=== PATIENT | female | born 1945 | race Caucasian/White ===

== ENCOUNTER 2016-08-31 12:21 | Emergency (ER) | payer MEDICARE, OTHER ==
[2016-08-31] MEDS ORDERED: 0.9 % SODIUM CHLORIDE 1,000 ML IV ONE ×2 (12:59→16:24)
[2016-08-31 13:22] LABS: BASOPHILS % 0.3 (0.0-1.5); EOSINOPHILS % 0.8 % (0.0-6.8); LYMPHOCYTES # 0.5 # k/uL (0.6-4.0); MEAN CORPUSCULAR HEMOGLOBIN 31.1 pg (28.0-34.0); MONOCYTES # 0.2 # k/uL (0.0-0.9)
[2016-08-31 13:41] LABS: eGFR (African) > 60; eGFR (Non-African) > 60
[2016-08-31] MEDS ORDERED: SODIUM BICARBONATE 2.4 MEQ VIAL INJ ONE (13:51)
[2016-08-31] MEDS ORDERED: LIDOCAINE 1%/EPINEPHRINE 20ML VIAL IJ ONE (13:51)
--- NOTE | 2016-08-31 14:22 | ED Physician Documentation ---
Syncope/Near Syncope - HISTORIAN Historian: patient - HPI Stated Complaint: Syncopal episode in shower Chief Complaint: Syncope Witnessed: No Position at Time of Episode: standing Symptoms Prior to Episode: none Character of Events(s): lost consciousness Symptoms after Event: confused after event Location of Injury: head Associated Symptoms: weakness Further Comments: yes (71 year old female patient presents to ER after syncopal episode. Patient states she was in the shower and awoke on the floor with laceration to forehead. Denies any CP, SOB, dizziness or palpitation prior to syncopal episode.) - ROS CONST: recent illness (cough x 3 day) - PAST HX Cardiac Disease: other (HLD) PE Risk Factors: none Other History: Other (depression) Surgeries/Procedures: , other (tonsilectomy) Allergies/Adverse Reactions: Allergies Allergy/AdvReac Type Severity Reaction Status Date / Time cephalexin monohydrate Allergy Intermediate Itchy Skin Verified 07/11/15 22:05 [From Keflex] Sulfa (Sulfonamide Allergy Intermediate Hives Verified 07/11/15 22:05 Antibiotics) [Sulfa(Sulfonamide Antibiotics)] Home Medications: Ambulatory Orders Medication Instructions Recorded Fluoxetine HCl [Prozac] 20 mg PO QDAY 07/27/12 Rosuvastatin Calcium [Crestor] 20 mg D 03/27/15 Omeprazole [Omeprazole] 40 mg PO DAILY 07/11/15 - SOCIAL HX Smoking History: non-smoker Alcohol Use: none - FAMILY HX Family History: denies: none - VITAL SIGNS Vital Signs: Vital Signs Temp Pulse Resp BP Pulse Ox 97.3 F L 76 18 123/64 96 08/31/16 12:21 08/31/16 15:30 08/31/16 12:21 08/31/16 13:00 08/31/16 15:30 - REVIEWED ASSESSMENTS Nursing Assessment Reviewed: Yes Vitals Reviewed: Yes Procedures Wound Location: head (left forehead) Wound Length: 2.5 cm Wound's Depth, Shape: linear Wound Explored: clean Irrigated w/ Saline (ccs): 250 Betadine Prep?: No (chlorhexidine) Anesthesia: Lidocaine w/ Epi Volume of Anesthetic: 5 Wound Repaired With: sutures Suture Size/Type: 6:0 Number of Sutures: 6 Sterile Dressing Applied?: Yes Progress: Patient tolerated well, edges well approximated. Progress - Progress Progress: 1400 Laceration repaired, reviewed plan of care with patient. Recommend admission for 23 hour observation due to LOC and syncopal episode. Patient requested transfer to [place]. 1425 Call to [place], case discussed with Mabel. Awaiting acceptance. - EKG/XRAY/CT EKG: rhythm (SR, rate 64, no acute changes) ED Results Lab/Radiology - Lab Results Lab Results: Lab Results 08/31/16 08/31/16 08/31/16 13:10 13:10 13:10 WBC 2.70 K/ul L K/ul (4.00-12.00) RBC 3.94 M/ul M/ul (3.90-5.20) Hgb 12.3 g/dL g/dL (12.0-16.0) Hct 36.5 % % (34.5-46.5) MCV 92.6 fl fl (80.0-100.0) MCH 31.1 pg pg (28.0-34.0) MCHC 33.6 g/dL g/dL (30.0-36.0) RDW 13.3 % % (11.3-14.3) Plt Count 89 K/mm3 L K/mm3 (130-400) Neut % (Auto) 73.4 % % (39.0-79.0) Lymph % (Auto) 16.9 % % (16.0-50.0) Armstrong % (Auto) 6.0 % % (0.0-11.0) Eos % (Auto) 0.8 % % (0.0-6.8) Baso % (Auto) 0.3 (0.0-1.5) Neut # 2.0 # k/uL # k/uL (1.4-7.7) Lymph # 0.5 # k/uL L # k/uL (0.6-4.0) Armstrong # 0.2 # k/uL # k/uL (0.0-0.9) Eos # 0.0 # k/uL # k/uL (0.0-0.6) Baso # 0.0 # k/uL # k/uL (0.0-0.5) Reactive Lymphs % 2.7 % % (0.0-5.0) Reactive Lymphs # 0.1 # k/uL # k/uL (0.0-0.8) Sodium 141 mmol/L mmol/L (136-145) Potassium 3.5 mmol/L mmol/L (3.5-5.0) Chloride 98 mmol/L mmol/L (98-110) Carbon Dioxide 36 mmol/L H mmol/L (20-32) BUN 17 mg/dL mg/dL (10-26) Creatinine 1.1 mg/dL mg/dL (0.4-1.5) Estimated Creat Clear 64 Est GFR ( Amer) > 60 (60 - ) Est GFR (Non-Af Amer) > 60 (60 - ) Glucose 109 mg/dL H mg/dL (70-99) Calcium 9.9 mg/dL mg/dL (8.5-10.5) Total Bilirubin 0.4 mg/dL mg/dL (0.2-1.2) AST 29 U/L U/L (0-41) ALT 17 U/L U/L (0-45) Alkaline Phosphatase 94 U/L U/L (46-116) Troponin I < 0.03 ng/mL L ng/mL (0.03-0.06) Total Protein 7.0 g/dL g/dL (6.0-8.5) Albumin 4.5 g/dL g/dL (3.0-5.5) - Radiology Radiology Impressions: Chest, 2 view History: SYNCOPE. PT FELL IN SHOWER THIS MORNING. DOES NOT REMEMBER INCIDENT Findings: The heart size is normal. There is atherosclerosis of the aorta. The lungs are clear. There is no pleural effusion or pneumothorax identified. The osseous structures are normal. Impression: 1. No acute pulmonary disease. CT Brain without Contrast History:SYNCOPE. PT FELL IN SHOWER THIS MORNING. DOES NOT REMEMBER INCIDENT Technique: Transaxial CT was performed without contrast from the skull base to the vertex. Findings: Scattered bilateral white matter hypodensity is present, consistent with gliosis. Mild cerebral atrophy is present. The lateral ventricles are mildly dilated. No hemorrhage or edema-producing mass. The fourth ventricle is midline. The paranasal sinuses are clear. No skull fracture. The mastoid air cells are well developed and well aerated. Impression: 1. Mild cerebral atrophy and white matter gliosis. 2. No acute cerebral pathology. - Orders Orders: ED Orders Category Date Time Status Apply/change dressing NOW Care 08/31/16 15:41 Active Continuous EKG monitoring Q30M Care 08/31/16 12:58 Active Continuous Pulse Oximetry Q30M Care 08/31/16 12:58 Active Orthostatics 1T Care 08/31/16 14:[address] Saline Lock/IV NOW Care 08/31/16 12:58 Active CHEST 2 VIEW [CHEST P.A.&LAT 2 VIEWS] [RAD] Stat Exams 08/31/[address] BRAIN W/O CONTRAST Stat Exams 08/31/16 Completed CBC/PLATELET/DIFF Stat Lab 08/31/16 13:10 Completed CMP Stat Lab 08/31/16 13:10 Completed TROPONIN I (cTnI) Stat Lab 08/31/16 13:10 Completed UA W/MICRO IF INDICATED Stat Lab 08/31/16 12:58 Ordered 0.9 % Sodium Chloride [Normal Saline] 1,000 ml Med 08/31/16 12:59 Discontinued IV NOW Lidocaine 1%/Epinephrine [Xylocaine 1%-EPI 1:100,000] Med 08/31/16 13:51 Discontinued 7 ml IJ NOW ONE Sodium Bicarbonate [Neut] Med 08/31/16 13:51 Discontinued 2.4 meq INJ NOW ONE EKG WITH COMPARISON Stat Ther 08/31/16 12:58 Completed Syncope Physical Exam - Physical Exam General Appearance: mild distress (tearful) EENT: nml eye inspection, PERRL, nml ENT inspection, no apparent trauma, pharynx nml, no CSF leak, other (2.5 cm laceration to right side of forehead) Respiratory: no resp distress, chest non-tender, breath sounds normal CVS: reg rate & rhythm, heart sounds normal, equal pulses, no murmur, no gallop , PMI nml, no JVD, no friction rub, 24 Abdomen: non-tender, no organomegaly, nml bowel sounds, no distention Skin: normal color, warm/dry, NR, INT, PAL, DR Extremities: non-tender, normal range of motion, no evidence of injury, no edema , J, 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 - Neuro/Psych Higher Functions: alert, oriented x3, no evidence of acute CVA, mood/affect nml Cranial Nerves: nml as tested Cerebellar: nml as tested Sensorimotor: nml motor response, nml sensory response, nml reflexes, nml gait Discharge Clincal Impression: Syncope and collapse, Thrombocytopenia Laceration of forehead Qualifiers: Encounter type: initial encounter Qualified Code(s): S01.81XA - Laceration without foreign body of other part of head, initial encounter Leukopenia Qualifiers: Leukopenia type: unspecified Qualified Code(s): D72.819 - Decreased white blood cell count, unspecified Referrals: La Blanchard, PRN [Primary Care Provider] - 2 Days Home Medications: Ambulatory Orders Fluoxetine HCl [Prozac] 20 mg PO QDAY 07/27/12 Rosuvastatin Calcium [Crestor] 20 mg D 03/27/15 Omeprazole [Omeprazole] 40 mg PO DAILY 07/11/15 Condition: Good Disposition: 02 XFER [id number] HOSP Decision to Admit: [id number] Decision Time: 14:31
--- NOTE | 2016-08-31 15:08 | Diagnostic Imaging Report ---
[facility] [address] [facility].[address] [address] Report Submission Date: Aug 31, 2016 1:45:12 PM SPRAY GUN STRIPER Patient Study Name: ROYER TALBOT Date: Aug 31, 2016 1:33:58 PM SPRAY GUN STRIPER Modality Type: CR Gender: F Description: CHEST : 43 Institution: [facility] Physician LISSET CROSS (FINANCIAL AID ADMINISTRATOR) - ER Chest, 2 view History: SYNCOPE. PT FELL IN SHOWER THIS MORNING. DOES NOT REMEMBER INCIDENT Findings: The heart size is normal. There is atherosclerosis of the aorta. The lungs are clear. There is no pleural effusion or pneumothorax identified. The osseous structures are normal. Impression: 1. No acute pulmonary disease. Electronically signed on Aug 31, 2016 1:45:12 PM SPRAY GUN STRIPER by: Alex WILLIS
--- NOTE | 2016-08-31 15:08 | Diagnostic Imaging Report ---
[facility] [address] [facility] [address] [place], [place]. [address] Report Submission Date: Aug 31, 2016 1:44:43 PM COVERSTITCH MACHINE OPERATOR Patient Study Name: ROYER TALBOT Date: Aug 31, 2016 1:26:51 PM COVERSTITCH MACHINE OPERATOR Modality Type: CT\SR Gender: F Description: CT BRAIN W/O CONTRAST : 43 Institution: [facility] Physician LISSET CROSS (CLINICAL LABORATORY ASSISTANT) - ER CT Brain without Contrast History:SYNCOPE. PT FELL IN SHOWER THIS MORNING. DOES NOT REMEMBER INCIDENT Technique: Transaxial CT was performed without contrast from the skull base to the vertex. Findings: Scattered bilateral white matter hypodensity is present, consistent with gliosis. Mild cerebral atrophy is present. The lateral ventricles are mildly dilated. No hemorrhage or edema-producing mass. The fourth ventricle is midline. The paranasal sinuses are clear. No skull fracture. The mastoid air cells are well developed and well aerated. Impression: 1. Mild cerebral atrophy and white matter gliosis. 2. No acute cerebral pathology. Electronically signed on Aug 31, 2016 1:44:43 PM COVERSTITCH MACHINE OPERATOR by: Alex Lynn [facility] STATE HOSPITALBenigno
[2016-08-31 16:34] VITALS: BP 140/80
[2016-08-31 17:36] LABS: APPEARANCE,URINE CLEAR (CLEAR); COLOR,URINE YELLOW (YELLOW)
[2016-08-31 17:37] LABS: OCCULT BLOOD,URINE TRACE-INTACT (NEGATIVE); UROBILINOGEN URINE 0.2 Eu (0.2-1.0)
== END 2016-08-31 16:25 | disposition short-term general hospital (02) ==
LOC: ED 12:21
DX: R55 Syncope and collapse (principal); D69.6 Thrombocytopenia, unspecified; S01.81XA Laceration without foreign body of other part of head, initial encounter; D72.819 Decreased white blood cell count, unspecified; W19.XXXA Unspecified fall, initial encounter; Y93.9 Activity, unspecified; Y99.9 Unspecified external cause status
CPT/HCPCS: 70450; 71020; 80053; 81002; 84484; 85025; 93005; J7030; 12001; 96361; 96374; 99283; 99284; S1016

== ENCOUNTER 2016-09-08 11:06 | Outpatient (CLI) | payer MEDICARE, OTHER ==
--- NOTE | 2016-09-08 15:22 | Diagnostic Imaging Report ---
[facility] [place] [facility] [address] [facility].[address] [address] Report Submission Date: Sep 08, 2016 3:07:54 PM ROADABILITY MACHINE OPERATOR Patient Study Name: ROYER TALBOT Date: Sep 08, 2016 11:16:16 AM ROADABILITY MACHINE OPERATOR Modality Type: CR Gender: F Description: CHEST : 43 Institution: [facility] [place] [facility] Physician: SUJATA TA (EPIC RADIANT ANALYST) - OP 4 views of the chest History: RIGHT SIDED RIB PAIN AFTER FALL IN SHOWER. PAIN DURING COUGH Findings: Comparison: August 31, 2016 Heart is normal in size. Aortic calcification is present. No focal consolidation, pleural effusion or pneumothorax. No evidence of right rib fracture Degenerative changes of the right shoulder and thoracic spine are present Impression: 1. No evidence of right rib fracture 2. No focal consolidation, pleural effusion or pneumothorax. Electronically signed on Sep 08, 2016 3:07:54 PM ROADABILITY MACHINE OPERATOR by: Sonja WILLIS
== END 2016-09-08 11:07 ==
LOC: RAD 11:06
PROVIDERS: ATTEND Nurse Practitioner Family
DX: R05 Cough (principal); Z91.81 History of falling; Z87.828 Personal history of other (healed) physical injury and trauma
CPT/HCPCS: 71101

== ENCOUNTER 2016-12-08 12:28 | Outpatient (CLI) | payer MEDICARE, OTHER ==
[2016-12-08] MEDS ORDERED: DENOSUMAB 60 MG/ML ML SQ SCH (13:00)
[2016-12-08] MEDS ORDERED: DENOSUMAB 60 MG/ML ML SQ ONE (13:00)
--- NOTE | 2016-12-08 16:55 | Diagnostic Imaging Report ---
[facility] [address] [facility].[address] [address] Report Submission Date: December 08, 2016 3:27:16 PM CDT Patient Study Name: ROYER TALBOT Date: December 08, 2016 12:47:36 PM CDT Modality Type: CR Gender: F Description: ABDOMEN : 43 Institution: [facility] Physician: SUJATA TA (INTELLECTUAL PROPERTY LAWYER) - OP Abdomen 2 views Clinical history: Changes in the bowel habits. Moderate fecal retention throughout the colon. No dilated small bowel loops. Mild calcification in the spleen. 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
== END 2016-12-08 12:30 ==
LOC: INF 12:28
PROVIDERS: ATTEND Nurse Practitioner Family
DX: M81.0 Age-related osteoporosis without current pathological fracture (principal); R19.4 Change in bowel habit
CPT/HCPCS: 74020; 96372; J0897

== ENCOUNTER 2017-06-15 08:01 | Outpatient (CLI) | payer MEDICARE, OTHER ==
[2017-06-15] MEDS ORDERED: DENOSUMAB 60 MG/ML ML SQ SCH (09:00)
[2017-06-15] MEDS ORDERED: DENOSUMAB 60 MG/ML ML SQ ONE (10:00)
== END 2017-06-15 08:02 ==
LOC: INF 08:01
PROVIDERS: ATTEND Nurse Practitioner Family
DX: M81.0 Age-related osteoporosis without current pathological fracture (principal)
CPT/HCPCS: 96372; J0897

== ENCOUNTER 2017-08-19 09:41 | Outpatient (CLI) | payer MEDICARE, OTHER | END 2017-08-19 09:42 | LOC: LAB 09:41 | PROVIDERS: ATTEND Nurse Practitioner Family | DX: M79.1 Myalgia (principal) | CPT/HCPCS: 36415; 82550 ==

== ENCOUNTER 2017-12-14 10:10 | Outpatient (CLI) | payer MEDICARE, OTHER ==
[2017-10-12 15:07] VITALS: BP 160/88
[2017-12-14] MEDS ORDERED: DENOSUMAB 60 MG/ML ML SQ ONE (10:15)
[2017-12-14] MEDS ORDERED: DENOSUMAB 60 MG/ML ML SQ SCH (11:00)
== END 2017-12-14 10:12 ==
LOC: INF 10:10
PROVIDERS: ATTEND Nurse Practitioner Family
DX: M81.0 Age-related osteoporosis without current pathological fracture (principal)
CPT/HCPCS: 96372; J0897

== ENCOUNTER 2018-06-16 11:59 | Outpatient (CLI) | payer MEDICARE, OTHER ==
[2017-10-12 15:07] VITALS: BP 160/88
[~2018-06-16 11:59] MED LIST: DENOSUMAB 60 MG/ML SYRINGE SQ ONE
== END 2018-06-16 12:00 ==
LOC: INF 11:59
PROVIDERS: ATTEND Nurse Practitioner Family
DX: M81.0 Age-related osteoporosis without current pathological fracture (principal)
CPT/HCPCS: 96372; J0897

== ENCOUNTER 2019-04-11 14:16 | Outpatient (CLI) | payer MEDICARE, OTHER ==
[2017-10-12 15:07] VITALS: BP 160/88
--- NOTE | 2019-04-11 15:46 | Diagnostic Imaging Report ---
SUJATA TA (FAISAL) - OP [facility] [address] [facility].[address] [address] Report Submission Date: Apr 11, 2019 3:14:11 PM CDT Patient Study Name: ROYER TALBOT Date: Apr 11, 2019 2:15:55 PM CDT Modality Type: DX Gender: F Description: ABD COMPLETE : 43 Institution: [facility] Physician: SUJATA TA (FAISAL) - OP Exam: Supine and upright view of the abdomen. No previous studies are available for comparison. Scattered loops of bowel gas in both large and small intestine is noted with a mild amount of retained fecal material seen in the colon. No organomegaly is seen. No renal or biliary calcifications are noted. Impression: Nonspecific bowel gas pattern. Electronically signed on Apr 11, 2019 3:14:11 PM CDT by: Lencho WILLIS
== END 2019-04-11 14:19 ==
LOC: RAD 14:16
PROVIDERS: ATTEND Nurse Practitioner Family
DX: K59.00 Constipation, unspecified (principal)
CPT/HCPCS: 74019

== ENCOUNTER 2019-06-30 12:46 | Outpatient (CLI) | payer MEDICARE, OTHER ==
[2017-10-12 15:07] VITALS: BP 160/88
[2019-06-30] MEDS ORDERED: DENOSUMAB (NF) 60 MG/ML SYRINGE SQ ONE (13:00)
== END 2019-06-30 13:15 | disposition home or self-care (01) ==
LOC: INF 12:46
PROVIDERS: ATTEND Nurse Practitioner Family
DX: M81.0 Age-related osteoporosis without current pathological fracture (principal)
CPT/HCPCS: J0897